=== PATIENT | female | born 1970 | race Caucasian/White ===

== ENCOUNTER 2018-04-03 21:38 | Emergency (ER) | payer SELFPAY ==
[2018-04-03 21:39] VITALS: BP 140/80; PULSE 74; RESP 18; TEMP 36.8; O2SAT 99; BMI 39.4
[2018-04-03 22:22] LABS: Absolute Lymphocyte Count 1.92 X10^3/ul (0.83-4.51); Absolute Neutrophil Count 3.4 X10^3/uL (2.0-7.7); Basophil# 0.03 X10^3/uL; Basophil% 0.5 % (0-1); Eosinophil# 0.18 X10^3/uL; Eosinophils% 2.9 % (0-5); Hematocrit 35.9 % (37-47); Hemoglobin 11.6 g/dl (12.0-15.0); Lymphocyte # 1.92 X10^3/ul (4.0); Lymphocyte % 31.4 % (19-41); Mean Corp Hgb Conc 32.3 g/gl (32-36); Mean Corpuscular Volume 89.8 fL (81-99); Mean Platelet Vol. 9.3 fl (6.2-12.0); Monocyte# 0.59 X10^3/uL; Monocyte% 9.6 % (0-10); Neutrophil # 3.39 X10^3/uL (2.7-7.7); Neutrophil % 55.4 % (47-70); POSITIVE COUNT NO; POSITIVE DIFFERENTIAL NO; POSITIVE MORPHOLOGY NO; Platelet Count 228 K/mm3 (150-450); RBC Distribution Width CV 12.8 % (11.6-14.6); RBC Distribution Width SD 41.1 fl (35.1-43.9); White Blood Count 6.1 K/mm3 (4.4-11.0)
[2018-04-03] MEDS: Clindamycin 600 MG/50 ML BAG 100 MG IV (22:28)
[2018-04-03 23:06] VITALS: RESP 18
--- NOTE | 2018-04-03 23:25 | ED.DCSUM_ITS ---
- ER Visit Summary Date of Service: 04/03/18 Chief Complaint: Neck pain and swelling History of Present Illness: The patient is a 48 F who presents with anterior neck pain and swelling the began today. Patient states she thinks she was bitten by a bug today. Patient noted some redness and swelling over the anterior neck today. Patient states this is gotten worse throughout the day. Patient states now she has some pain with swallowing. Patient denies any shortness of breath. Patient admits to some nausea but denies any vomiting. Patient states she did have a rash over her chest, abdomen, and back that lasted a few minutes and then resolved. Patient admits to subjective fevers at home. Patient denies any sore throat. Physical Examination: Vital signs are stable. Patient is afebrile. Patient is in no acute distress. Oral mucosa is pink and moist. Oropharynx is clear. Neck is supple. Trachea is midline. No JVD or lymphadenopathy. Skin is warm and dry. There is some edema, erythema, warmth, and mild tenderness over the anterior aspect of the left side of the neck. There is no fluctuance. There is no discharge or drainage noted. Heart was regular rate and rhythm. Lungs are clear and equal bilaterally. There is good respiratory effort noted. Abdomen is soft and nontender. Cranial nerves II through XII are intact. There are no focal motor or sensory deficits noted. The remaining physical exam is within normal limits. Test Results: CBC was obtained and was within normal limits Emergency Department Course and Treatment: Patient was given a dose of clindamycin here. Patient was given prescriptions for clindamycin and prednisone. Patient was instructed to follow-up with her primary care physician in 7-10 days. Patient understood and was agreeable with the plan. All questions were answered. Disposition: Discharged home Impression: Cellulitis anterior neck This note was generated with [employer] dictation software. It may contain incorrect words, spelling, and punctuation that were not noted in review of the chart prior to signing ED Disposition - Plan for ED Patient: Disposition: Home or Assisted Living Chief Complaint: Bite Diagnosis: Cellulitis of neck Instructions: ED Infec Skin Cellulitis Prescriptions: Prednisone [Deltasone] 40 mg PO DAILY #10 tab Clindamycin HCl [Cleocin] 300 mg PO Q6H #28 cap Referrals: Renny Miller MD [Primary Care Provider] -
== END 2018-04-03 23:08 | disposition home or self-care (01) ==
PROVIDERS: Emergency Provider Emergency Medicine
DX: L03.221 Cellulitis of neck (principal); F32.9 Major depressive disorder, single episode, unspecified; Z90.49 Acquired absence of other specified parts of digestive tract; Z90.710 Acquired absence of both cervix and uterus; Z79.899 Other long term (current) drug therapy
CPT/HCPCS: 85025; 96365; 99284; A4216

== ENCOUNTER → 2018-11-28 12:48 | Outpatient (CLI) | payer SELFPAY ==
--- NOTE | 2018-11-28 12:55 | BI_ITS ---
MAMMOGRAPHY - BILATERAL SCREENING REASON FOR EXAM: Female, 48 years old. Routine annual screening examination. PERTINENT HISTORY: Grandmother with breast cancer. TECHNIQUE: Digital bilateral breast anamika (3D mammographic acquisition) in the CC and MLO projections. 2-D mediolateral oblique (MLO) and craniocaudad (CC) views of both breasts were obtained. CAD: Full Field Digital Mammography with Computer Added Detection was performed. COMPARISON: Comparison is made with prior study dated September 23, 2017 and November 16, 2015. FINDINGS: Breast Composition: There are scattered areas of fibroglandular density. There are no dominant masses or suspicious calcifications. No other significant abnormalities are identified. There has been no significant change since the prior study. BI/SCREENING MAMM (CAD), BILAT IMPRESSION: Stable bilateral screening mammogram. Yearly follow-up mammogram recommended. (A) ASSESSMENT CATEGORY: BIRADS Category 1: Negative. A letter regarding these results will be sent to the patient by the facility within 30 days. Approximately 10% of breast cancers are not detected by mammography. A normal mammogram should not delay biopsy of a clinically suspicious abnormality. [id number] Electronically Signed: Jamshid Catherine MD at 14:25 EST Tel [phone], Service support ,
--- OUTSIDE RECORDS SUMMARY | 2019-02-02 02:41 | XMS RPT_ITS ---
:1970 Author Organization [facility] Care Team Providers Name Role Phone Roro Diallo Attending Unavailable Renny Miller Primary Care Unavailable Roro Diallo Referring Unavailable Renny Miller Primary Care Unavailable Fredrick Smith Attending Unavailable Hung Qiu Admitting Unavailable Hung Qiu Attending Unavailable Shaji Nguyen Primary Care Unavailable ObAndree zaman Attending Unavailable ObAndree zaman Admitting Unavailable Andree Trujillo Primary Care Unavailable Renny Brown Consulting Unavailable Renny Brown Attending Unavailable Andree Trujillo Primary Care Unavailable Renny Brown Admitting Unavailable ObAndree zaman Admitting Unavailable ObAndree zaman Attending Unavailable Andree Trujillo Primary Care Unavailable Renny Brown Admitting Unavailable Renny Brown Attending Unavailable Andree Trujillo Primary Care Unavailable PROBLEMS PROBLEMS No Problem Records FoundPROCEDURES PROCEDURES No Procedure Records FoundRESULTS RESULTS SCREENING MAMM (CAD), Observed: 11/28/2018 Status: F Source: [facility] 12:55 PM [facility] REPOSITORY [facility] Imaging Services [address] [place] [address], [place] [address] SCREENING MAMM (CAD), BILAT MR#: [id number] Acct: [id number] Name: XANDER JO Rep #: [id number] : 1970 F 48 From: Jamshid Catherine MD PCP: Renny Miller MD Status: [facility] Study: SCREENING MAMM (CAD), BILAT Date of Exam: 11/28/18 Exam# [id number] Ordering Dr: Roro Diallo MD MAMMOGRAPHY - BILATERAL SCREENING REASON FOR EXAM: Female, 48 years old. Routine annual screening examination. PERTINENT HISTORY: Grandmother with breast cancer. TECHNIQUE: Digital bilateral breast anamika (3D mammographic acquisition) in the CC and MLO projections. 2-D mediolateral oblique (MLO) and craniocaudad (CC) views of both breasts were obtained. CAD: Full Field Digital Mammography with Computer Added Detection was performed. COMPARISON: Comparison is made with prior study dated September 23, 2017 and November 16, 2015. FINDINGS: Breast Composition: There are scattered areas of fibroglandular density. There are no dominant masses or suspicious calcifications. No other significant abnormalities are identified. There has been no significant change since the prior study. BI/SCREENING MAMM (CAD), BILAT IMPRESSION: Stable bilateral screening mammogram. Yearly follow-up mammogram recommended. (A) ASSESSMENT CATEGORY: BIRADS Category 1: Negative. A letter regarding these results will be sent to the patient by the facility within 30 days. Approximately 10% of breast cancers are not detected by mammography. A normal mammogram should not delay biopsy of a clinically suspicious abnormality. [id number] Electronically Signed: Jamshid Catherine MD at 14:25 EST Tel [phone], Service support , CC: Renny Miller MD; Roro Diallo MD Special Education Superintendent: Signed XR FOOT 2 VIEWS Observed: 06/23/2018 Status: F Source: [facility] 3:16 PM [facility] REPOSITORY Exam Date/Time: 06/23/2018 15:23 EDT Reason for Exam: Pain, Non Traumatic Report STUDY: XR Foot 2 Views Right; 06/23/2018 3:23 pm INDICATION: Pain, Non Traumatic. COMPARISON: None. ACCESSION NUMBER(S): [id number] ORDERING CLINICIAN: Andree Trujillo TECHNIQUE: 2 views of the right foot including AP and lateral projections were obtained. FINDINGS: There is no radiographic evidence of acute fracture or dislocation identified. The joint spaces are well preserved throughout without significant degenerative changes. IMPRESSION: 1. No acute fracture or dislocation identified. FINAL REPORT Dictated: 06/23/2018 3:25 pm Isaak Bush MD Signed (Electronic Signature): 06/23/2018 3:25 pm Signed by: Isaak Bush MD Technologist: [facility] Observed: 04/03/2018 Status: F Source: [facility] 11:31 PM [facility] REPOSITORY [facility] Medical Records Department [address] [place] [address] Emergency Department Summary 04/03/18 2249 MR#: [id number] Acct: [id number] Name: XANDER JO Rep #: [id number] : 1970 48 From: Fredrick Smith DO PCP: Renny Miller MD Status: DEP ER - ER Visit Summary Date of Service: 04/03/18 Chief Complaint: Neck pain and swelling History of Present Illness: The patient is a 48 F who presents with anterior neck pain and swelling the began today. Patient states she thinks she was bitten by a bug today. Patient noted some redness and swelling over the anterior neck today. Patient states this is gotten worse throughout the day. Patient states now she has some pain with swallowing. Patient denies any shortness of breath. Patient admits to some nausea but denies any vomiting. Patient states she did have a rash over her chest, abdomen, and back that lasted a few minutes and then resolved. Patient admits to subjective fevers at home. Patient denies any sore throat. Physical Examination: Vital signs are stable. Patient is afebrile. Patient is in no acute distress. Oral mucosa is pink and moist. Oropharynx is clear. Neck is supple. Trachea is midline. No JVD or lymphadenopathy. Skin is warm and dry. There is some edema, erythema, warmth, and mild tenderness over the anterior aspect of the left side of the neck. There is no fluctuance. There is no discharge or drainage noted. Heart was regular rate and rhythm. Lungs are clear and equal bilaterally. There is good respiratory effort noted. Abdomen is soft and nontender. Cranial nerves II through XII are intact. There are no focal motor or sensory deficits noted. The remaining physical exam is within normal limits. Test Results: CBC was obtained and was within normal limits Emergency Department Course and Treatment: Patient was given a dose of clindamycin here. Patient was given prescriptions for clindamycin and prednisone. Patient was instructed to follow-up with her primary care physician in 7-10 days. Patient understood and was agreeable with the plan. All questions were answered. Disposition: Discharged home Impression: Cellulitis anterior neck This note was generated with [employer] dictation software. It may contain incorrect words, spelling, and punctuation that were not noted in review of the chart prior to signing ED Disposition - Plan for ED Patient: Disposition: Home or Assisted Living Chief Complaint: Bite Diagnosis: Cellulitis of neck Instructions: ED Infec Skin Cellulitis Prescriptions: Prednisone [Deltasone] 40 mg PO DAILY #10 tab Clindamycin HCl [Cleocin] 300 mg PO Q6H #28 cap Referrals: Renny Miller MD [Primary Care Provider] - What to do if you have Problems For any increased pain, shortness of breath, bleeding, nausea or vomiting, chest pain, or any unexpected problems, contact your Primary Care Provider. Call [email or web address] ([phone]) or report to the closest Emergency Room. Call 911 if necessary. 04/03/18 6860 <Electronically signed by Fredrick Smith DO> Date Fredrick Smith DO Cosigner Signature (If Indicated): Date CC: Renny Miller MD CBC W/DIFF, AUTOMATED Collected: 04/03/2018 Status: F Source: [place] 10:10 PM [facility] REPOSITORY TYPE CODE TESTS RESULT OUT OF RANGE REFERENCE UNITS LAB L100.1000 4.4-11.0 K/mm3 Normal WBC 6.1 LAB L100.1200 4.2-5.4 M/mm3 Low RBC 4.00 LAB L100.1300 12.0-15.0 g/dl Low HGB 11.6 LAB L100.1400 37-47 % Low HCT 35.9 LAB L100.1500 81-99 fL Normal MCV 89.8 LAB L100.1600 27.0-32.0 pg Normal MCH 29.0 LAB L100.1700 32-36 g/gl Normal MCHC 32.3 LAB L100.1810 11.6-14.6 % Normal RDW CV 12.8 LAB L100.1820 35.1-43.9 fl Normal RDW SD 41.1 LAB L100.1900 150-450 K/mm3 Normal PLT 228 LAB L100.2000 6.2-12.0 fl Normal MPV 9.3 LAB L100.2100 47-70 % Normal NEUT% 55.4 LAB L100.2200 19-41 % Normal LY% 31.4 LAB L100.2300 0-10 % Normal MONO% 9.6 LAB L100.2400 0-5 % Normal EO% 2.9 LAB L100.2500 0-1 % Normal BASO% 0.5 LAB L100.2550 0.0-0.9 % Normal IM GRAN % 0.200 Result Comment: IG% - Immature Granulocytes (promyelocytes, myelocytes and metamyelocytes) > 1% indicates that a LEFT SHIFT is Present. LAB L100.2620 2.0-7.7 X10 3/uL Normal Absolute Neut 3.4 LAB L100.2720 0.83-4.51 X10 3/ul Normal Absolute Lymph 1.92 Performed By: #### L100.0100 #### [facility] [address] [place], [address] ALLERGIES ALLERGIES DATE TYPE / CODE NAME / CODE REACTION SEVERITY SOURCE 04/03/2018 Drug Penicillins/F0010 Angioedema Unknown [place] Allergy/416 26783(RXNORM) [facility] 092583([facility] ED CT) Repository Drug/985642 penicillins Swelling Mosque 003([facility] CT) System Repository Drug/250064 penicillins Mosque 003([facility]) System Repository ENCOUNTERS ENCOUNTERS ADMIT/DISCHARGE ACCOUNT NUMBER ADMITTING ENCOUNTER LOCATION SOURCE CLASS 11/28/2018 [id number] Ambulatory [facility] ng:OPBI Repository 06/27/2018 [id number] [facility] ng:[facility] System Repository 06/27/2018 [id number] Ambulatory [address] [place] [address] Repository 06/26/2018/ [id number] [facility] William [facility] 2 06/23/2018/ [id number] [facility] 018 Andree L [facility] ng:[facility] System Repository 06/23/2018 [id number] Ambulatory [address] [place] [address] Repository 06/19/2018/ [id number] Ronnie, [facility] Mosque 018 Andree L uilding:[facility] rimCareRoom: Health System Room 2 Repository 04/03/2018/ [id number] Emergency [address] ng:ED Repository 01/10/2018/ [id number] Uyen, Ambulatory Mosque Mosque 018 Hung Khan [facility] ng:CD:[id number] Health System 51Room: Repository CD:[id number] PAYERS PAYERS ENCOUNTER GUARANTOR PAYER SUBSCRIBER SOURCE 11/28/2018 BRITNI [facility] [id number] Insurance:SELF PAY [address] [address]Zsp: Number: Effective Repository Date:2018-10-01 (HP) [facility]/27/[facility]: Insurance:Self STONERDOB: [facility] PayPolicy Number: [id number] [address] Effective [address] Repository [address] [place] [address], Date:2018-06-26 - [address] [place] [address] [id number] [place] [address]Tpx: Name:Self Pay [phone]: (HP) (HP) (WP) 06/27/2018 [facility] STONERDOB: Insurance:Self STONERDOB: Hospitals PayPolicy Number: [id number] Repository [address] Effective Date:Plan [address] [place] [address], Name:[address] [phone]: [place] [phone]: (HP) (HP) 06/26/2018 [facility] STONERDOB: Insurance:1500 Self STONERDOB: [facility] PayPolicy Number: [id number] System [address] Effective [address] Repository [address] [place] [address], Date:2018-06-19 - [address] [place] [address] [id number] [place] [address]Pkj: Name:CD:[id number]: (HP) (HP) (WP) 06/23/2018 [facility] STONERDOB: Insurance:Self STONERDOB: [facility] PayPolicy Number: [id number] System [address] Effective [address] Repository [address] [place] [address], Date:2018-06-[address] [id number] [place] [address]Rwd: Name:Self Pay [phone]: (HP) (HP) (WP) 06/23/2018 [facility] STONERDOB: Insurance:Self STONERDOB: Hospitals PayPolicy Number: [id number] Repository [address] Effective Date:Plan [address] [place] [address], Name:[address] [phone]: [place] [phone]: (HP) (HP) 06/19/2018 [facility] STONERDOB: Insurance:1500 Self STONERDOB: [facility] PayPolicy Number: [id number] System [address] Effective [address] Repository [address] [place] [address], Date:2018-06-19 - [address] [place] [address] [id number] [place] [address]Wuu: Name:CD:[id number]: (HP) (HP) (WP) 04/03/2018 BR[facility] [id number] SR Insurance:SELF PAY [address] [address]Bxq: Number: Effective Repository [phone] Date:2018-04-03 (HP) 01/10/2018 [facility] STONERDOB: Insurance:Self STONERDOB: [facility] PayPolicy Number: [id number] System [address] Effective [address] Repository [address] [place] [address], Date:2018-01-10 - [address] [place] [address] [id number] [place] [address]Wee: Name:Self Pay [phone]: (HP) (HP) (WP)
== END ==
PROVIDERS: Referring Provider Obstetrics & Gynecology; Visit Provider Obstetrics & Gynecology
DX: Z12.31 Encounter for screening mammogram for malignant neoplasm of breast (principal)
CPT/HCPCS: 77063; 77067

== ENCOUNTER → 2020-01-07 13:23 | Outpatient (CLI) | payer SELFPAY ==
--- NOTE | 2020-01-07 13:30 | BI_ITS ---
MAMMOGRAPHY - BILATERAL SCREENING REASON FOR EXAM: Female, 49 years old. Routine annual screening examination. PERTINENT HISTORY: Previous mammogram obtained on 11/29/2018 TECHNIQUE: Digital bilateral breast cari (3D mammographic acquisition) in the CC and MLO projections. 2-D mediolateral oblique (MLO) and craniocaudad (CC) views of both breasts were obtained. CAD: Full Field Digital Mammography with Computer Added Detection was performed. COMPARISON: None. FINDINGS: Breast Composition: Scattered There are no dominant masses or suspicious calcifications. No other significant abnormalities are identified. BI/SCREEN MAMM (CAD) W/CARI BILAT IMPRESSION: Stable bilateral screening mammogram. Yearly follow-up mammogram recommended. (A) ASSESSMENT CATEGORY: BIRADS Category 1: Negative. A letter regarding these results will be sent to the patient by the facility within 30 days. Approximately 10% of breast cancers are not detected by mammography. A normal mammogram should not delay biopsy of a clinically suspicious abnormality. [id number] Electronically Signed: Rodriguez Wilde, at 19:31 EST Tel , Service support ,
== END ==
PROVIDERS: Referring Provider Obstetrics & Gynecology; Visit Provider Obstetrics & Gynecology
DX: Z12.31 Encounter for screening mammogram for malignant neoplasm of breast (principal)
CPT/HCPCS: 77063; 77067

== ENCOUNTER 2020-09-19 11:52 | Emergency (ER) | payer OTHER, SELFPAY ==
[2020-09-19 11:53] VITALS: BP 143/83; PULSE 87; RESP 20; TEMP 36.7; O2SAT 100; BMI 40.3
--- NOTE | 2020-09-19 12:43 | EKG12_ITS ---
Test Reason : CP Blood Pressure : / mmHG Vent. Rate : 086 BPM Atrial Rate : 086 BPM P-R Int : 146 ms QRS Dur : 088 ms QT Int : 372 ms P-R-T Axes : 052 005 058 degrees QTc Int : 445 ms Normal sinus rhythm Confirmed by HAYDEE WALLER, CODI ([id number]), historic preservationist MILENA SALCEDO ([id number]) on 09/21/2020 8:46:15 AM Referred By: YAS Confirmed By:CODI HUBBADR MD
--- NOTE | 2020-09-19 12:43 | RAD_ITS ---
STUDY: X-RAY CHEST REASON FOR EXAM: Female, 50 years old. CHEST PAINS RADIATING THROUGH BACK AND LEFT SHOULDER, HX CAD TECHNIQUE: Single AP portable view of the chest. COMPARISON: None. FINDINGS: EKG electrodes are seen. Minimal increased markings are seen in the right middle lobe. Follow-up is recommended. There is no demonstrated pleural abnormality. Normal size heart. Normal mediastinum and germán. Normal visualized pulmonary arteries. Normal visualized aortic arch and descending thoracic aorta. Normal visualized thoracic spine. Normal visualized ribs, clavicles, and shoulders. There is no demonstrated abnormality of the visualized soft tissue structures of the upper abdomen. RAD/Chest 1 View (Portable) IMPRESSION: Minimal increased markings are seen in the right middle lobe. Follow-up is recommended. Electronically Signed: Jamshid Catherine, at 13:08 EST , Service support ,
[2020-09-19] MEDS: Aspirin 81 MG TAB.CHEW 324 MG PO (12:51)
[2020-09-19 12:52] VITALS: BP 123/72; PULSE 84; RESP 18; O2SAT 96
--- NOTE | 2020-09-19 12:58 | ED.VIS.GEN ---
History of Present Illness Chief Complaint: Chest Pain Informant: Patient Narrative: Patient is a 50-year-old female with a past medical history of what sounds like coronary vasospasms who presents to the emergency department for chest pain. She states that this occurred at work. She took 2 doses of nitroglycerin which relieved her symptoms well. She states that she has been off of her medications for her spasms for the past 2 weeks. She has had cardiac catheterizations before in the past when they have diagnosed this. She is currently denying any chest pain. She did get short of breath. She had some palpitations. She got nauseous and diaphoretic during the episode. She denies any recent illness including a cough or fever/chills. No abdominal pain. No back pain. The pain did radiate down her left arm. Past Medical History - Allergies and Home Meds Allergies/Adverse Reactions: Allergies Penicillins Allergy (Verified 09/19/20 11:56) Angioedema Primary Care Physician: Andree Trujillo DO [Primary Care Provider] - 2 Days Prior records reviewed: Yes Smoking Status: Never smoker Review of Systems All systems negative except as indicated General: Reports: Sweats. Denies: Chills, Fever Eyes: Denies: Visual changes - bilaterally, Diplopia ENT: Denies: Rhinorrhea, Sore throat Cardiovascular: Reports: Chest pain, Palpitations Respiratory: Denies: Dyspnea, Cough, Dyspnea on exertion Gastrointestinal: Denies: Abdominal pain, Nausea, Vomiting, Diarrhea Genitourinary: Denies: Dysuria, Hematuria, Frequency Musculoskeletal: Denies: Back pain, Extremity Pain Skin: Denies: Rash, Wounds Neurological: Denies: Headache, Weakness, Numbness Physical Exam Vital Signs/Narrative: Vital Signs Temp Pulse Resp BP Pulse Ox 09/19/20 12:52 84 18 123/72 H 96 09/19/20 11:53 98.1 F 87 20 H 143/83 H 100 Inital Vital Signs reviewed: Yes General: Well nourished, Well developed, No Acute Distress Head: Normocephalic, Atraumatic Eyes: Perrl, EOMI ENT: Moist mucous membranes, No rhinorrhea Neck: Supple, Nontender Cardiovascular: Regular rate, Regular rhythm, No murmurs Respiratory: No distress, CTA bilaterally, Chest nontender Abdomen: Soft, Nontender, Nondistended, Normal bowel sounds Back: Nontender, Normal Inspection Extremities: Nontender, No edema. Negative for: Calf Tenderness Skin: Normal color, No rash Neurological: Alert, Oriented x3, Cranial nerves II-XII grossly intact, Normal Strength, Normal Sensation Psychological: Normal affect, Normal Mood Diagnostic/Tx/Re-eval - EKG Initial EKG Interpretation: - - Rate of 86 bpm normal sinus rhythm. Normal intervals. Normal axis. No significant ST elevations or depressions appreciated. No T wave abnormalities. - Medical Decision Making Patient presents to the emergency department for chest pain that resolved with nitroglycerin. Upon arrival to the ED she is in no acute distress and is asymptomatic. She does have a history of coronary vasospasms. Will check basic lab work, EKG and chest x-ray. She is given a dose of aspirin here. Patient's troponin as well as repeat troponin are both negative. She has been completely asymptomatic since has been here. I did contact her clinical social worker, Dr. Linton. He feels that since she is asymptomatic, repeat troponin and with his history of not being on her medications that it is appropriate for her to be discharged. Patient is agreeable with this plan. Low concern for pulmonary embolism. No hypoxia or tachycardia. She is given her home dose of Cardizem before she is discharged. She develops any worsening symptoms despite being on this she is to return to the emergency department for further evaluation and management. She understands and is agreeable this plan. Discharged home in stable condition. All questions answered. ED Disposition - Plan for ED Patient: Disposition: Home or Assisted Living Diagnosis: Chest pain Instructions: ED Chest Pain Atypical Unkn Cause Referrals: Andree Trujillo DO [Primary Care Provider] - 2 Days
[2020-09-19 13:01] LABS: Absolute Lymphocyte Count 1.91 X10^3/uL (0.83-4.51); Absolute Neutrophil Count 3.7 X10^3/uL (2.0-7.7); Basophil# 0.04 X10^3/uL; Basophil% 0.6 % (0-1); Eosinophil# 0.16 X10^3/uL; Eosinophils% 2.5 % (0-5); Hematocrit 38.8 % (37-47); Lymphocyte # 1.91 X10^3/ul (4.0); Mean Corp Hgb Conc 30.9 g/dL (32-36); Mean Corpuscular Hgb 28.4 pg (27.0-32.0); Mean Corpuscular Volume 91.9 fL (81-99); Mean Platelet Vol. 10.2 fl (6.2-12.0); Monocyte# 0.47 X10^3/uL; Monocyte% 7.4 % (0-10); NRBC Flagged by Analyzer 0 % (0-5); Neutrophil # 3.73 X10^3/uL (2.7-7.7); Neutrophil % 58.7 % (47-70); Platelet Count 270 K/mm3 (150-450); RBC Distribution Width CV 12.6 % (11.6-14.6); RBC Distribution Width SD 42.6 fl (35.1-43.9); Red Blood Count 4.22 M/mm3 (4.2-5.4); White Blood Count 6.4 K/mm3 (4.4-11.0)
[2020-09-19 13:18] LABS: BUN 12 mg/dL (7-18); Creatinine, Serum 1.06 mg/dL (0.55-1.02); EST Glomerular Filtration Rate 58 mL/min (>60); Estimated Creatinine Clearance 59.44 ml/min; Glucose 96 mg/dL (74-106)
[2020-09-19 13:19] LABS: Anion Gap 6 (5-15); BUN/Creat Ratio 11.3 RATIO (10-20); Calcium,Total 9.3 mg/dL (8.5-10.1); Chloride 105 mmol/L (98-107); Est Glom Filt Rate - Afr Amer 70 mL/min (>60); Potassium 3.5 mmol/L (3.5-5.1); Sodium Level 140 mmol/L (136-145)
[2020-09-19 14:49] VITALS: BP 120/78; PULSE 77; RESP 15; O2SAT 97
[2020-09-19 15:23] VITALS: BP 127/81; PULSE 81; RESP 16; O2SAT 94
[2020-09-19 16:10] VITALS: BP 125/81; PULSE 84; RESP 20; O2SAT 99
[2020-09-19 16:17] VITALS: BP 127/76; PULSE 77; RESP 18; O2SAT 98
[2020-09-19] MEDS: dilTIAZem 60 MG CAP.SR.12H 180 MG PO (16:20)
== END 2020-09-19 16:23 | disposition home or self-care (01) ==
PROVIDERS: Emergency Provider Emergency Medicine; PCP Internal Medicine
DX: R07.9 Chest pain, unspecified (principal); I20.1 Angina pectoris with documented spasm; I10 Essential (primary) hypertension; R61 Generalized hyperhidrosis; Z79.899 Other long term (current) drug therapy
CPT/HCPCS: 71045; 80048; 84484; 85025; 93005; 99285; A4216